=== PATIENT | female | born 1990 | race Caucasian/White ===

== ENCOUNTER 2024-01-14 09:48 | Outpatient (CLI) | payer OTHER, SELFPAY | END 2024-01-14 09:49 | disposition home or self-care (01) | LOC: ANHAUDIO 09:49 | PROVIDERS: PCP Family Medicine; Visit Provider Family Medicine | DX: Z01.10 Encounter for examination of ears and hearing without abnormal findings (principal); H90.41 Sensorineural hearing loss, unilateral, right ear, with unrestricted hearing on the contralateral side | CPT/HCPCS: 92557; 92567 ==